=== PATIENT | male | born 1995 | race Two or more races ===

== ENCOUNTER 2022-09-03 22:32 | Emergency (ER) | payer OTHER ==
[~2022-09-03] VITALS: Ht 170.2 cm; Wt 86.2 kg
== END 2022-09-04 03:23 | disposition home or self-care (01) ==
LOC: ER 22:32
DX: S83.91XA Sprain of unspecified site of right knee, initial encounter (principal); X58.XXXA Exposure to other specified factors, initial encounter; Y93.89 Activity, other specified; Y92.89 Other specified places as the place of occurrence of the external cause; Y99.9 Unspecified external cause status